=== PATIENT | male | born 1995 | race Caucasian/White ===

== ENCOUNTER 2017-04-17 17:09 | Emergency (ER) | payer OTHER ==
[2017-04-17 19:48] VITALS: BP 142/67
[2017-04-17] MEDS ORDERED: Lidocaine 2% EPI 1:200000 MPF* 20 ML VIAL ONE (21:13)
[2017-04-17] MEDS ORDERED: Clindamycin CAP* 150 MG PO ONE (21:31)
[2017-04-17] MEDS ORDERED: oxyCODONE/Acetamin 5/325 MG* TAB PO ONE (21:32)
--- NOTE | 2017-04-17 21:43 | ED ---
Yifan Diaz Tiffany, scribed for Jorge Benz MD on 04/17/17 at 2110 . GI/ HPI - HPI Summary HPI Summary: The patient is a 21 y/o M c/o rectal abscess since yesterday morning. Symptoms aggravated by nothing. Symptoms alleviated by nothing. Reports right buttock pain, bloody stool, and normal bowel movements. Denies fever. - History of Current Complaint Chief Complaint: EDRectalPain Time Seen by Provider: 04/17/17 20:41 Stated Complaint: ABCESS Hx Obtained From: Patient Onset/Duration: Started Days Ago - Yesterday morning, Still Present Timing: Constant - Allergy/Home Medications Allergies/Adverse Reactions: Allergies Allergy/AdvReac Type Severity Reaction Status Date / Time No Known Allergies Allergy Verified 04/17/17 17:15 PMH/Surg Hx/FS Hx/Imm Hx Previously Healthy: Yes Endocrine/Hematology History: Denies: Hx Diabetes Sensory History: Denies: Hx Deafness Opthamlomology History: Denies: Hx Legally Blind EENT History: Denies: Hx Deafness Infectious Disease History: No Infectious Disease History: Denies: Traveled Outside the [place] in Last 30 Days - Family History Known Family History: Positive: Other - Denies relevant family history - Social History Alcohol Use: Weekly Hx Substance Use: No Substance Use Type: Reports: None Hx Tobacco Use: No Smoking Status (MU): Never Smoked Tobacco Review of Systems Negative: Fever Positive: Other - Rectal abscess, bloody stools, normal bowel movements Positive: Other - Right buttock pain All Other Systems Reviewed And Are Negative: Yes Physical Exam - Summary Physical Exam Summary: VITAL SIGNS: Reviewed. GENERAL: Patient is a well-developed and nourished male who is lying comfortable in the stretcher. Patient is not in any acute respiratory distress. HEAD AND FACE: No signs of trauma. No ecchymosis, hematomas or skull depressions. No sinus tenderness. EYES: PERRLA, EOMI x 2, No injected conjunctiva, no nystagmus. EARS: Hearing grossly intact. Ear canals and tympanic membranes are within normal limits. MOUTH: Oropharynx within normal limits. NECK: Supple, trachea is midline, no adenopathy, no JVD, no carotid bruit, no c- spine tenderness, neck with full ROM. CHEST: Symmetric, no tenderness at palpation LUNGS: Clear to auscultation bilaterally. No wheezing or crackles. CVS: Regular rate and rhythm, S1 and S2 present, no murmurs or gallops appreciated. ABDOMEN: Soft, non-tender. No signs of distention. No rebound no guarding, and no masses palpated. Bowel sounds are normal. RECTAL EXAM: 1.5 inch in diameter area of induration, tenderness at midline between his buttocks which is oozing sanguinopurulent discharge which is foul- smelling EXTREMITIES: FROM in all major joints, no edema, no cyanosis or clubbing. NEURO: Alert and oriented x 3. No acute neurological deficits. Speech is normal and follows commands. SKIN: Dry and warm Triage Information Reviewed: Yes Vital Signs On Initial Exam: Initial Vitals Temp Pulse Resp BP Pulse Ox 97.0 F 73 16 148/88 98 04/17/17 17:13 04/17/17 17:13 04/17/17 17:13 04/17/17 17:13 04/17/17 17:13 Vital Signs Reviewed: Yes Procedures - Incision and Drainage Site: Pus mixed with small amount of blood came out Anesthesia: Lidocaine - 2% Instrument(s): Needle - Blade #11 used to make 1-cm vertical incision Packing: Gauze Diagnostics - Vital Signs Vital Signs Temp Pulse Resp BP Pulse Ox 04/17/17 19:47 97.7 F 77 20 142/67 100 04/17/17 17:13 97.0 F 73 16 148/88 98 - Laboratory Lab Statement: Any lab studies that have been ordered have been reviewed, and results considered in the medical decision making process. GIGU Course/Dx - Course Course Of Treatment: 21 y/o M c/o rectal abscess since yesterday morning. Rectal exam revealed area of induration. Patient agreed to have I&D done. Used lidocaine 2% epi, blade #11 to make 1-cm vertical incision. Pus mixed with small amount of blood came out. Packed. Advised to come back for wound recheck. Agreeable to discharge. - Diagnoses Provider Diagnoses: Pilonidal abscess Discharge - Discharge Plan Condition: Stable Disposition: HOME Prescriptions: Clindamycin Cap(NF) [Clindamycin Cap 300 mg Cap(NF)] 300 mg PO Q6H #30 cap oxyCODONE/Acetamin 5/325 MG* [Percocet 5/325 TAB*] 1 tab PO Q6H PRN #14 tab MDD 4 PRN Reason: Pain Patient Education Materials: Pilonidal Cyst (ED) Referrals: [facility] [place] [Primary Care Provider] - Additional Instructions: Come back here for wound check on Monday04/19/17 morning. RETURN TO EMERGENCY DEPARTMENT FOR ANY NEW OR WORSENING SYMPTOMS The documentation as recorded by the Yifan barrientos Tiffany accurately reflects the service I personally performed and the decisions made by me, Jorge Benz MD.
[2017-04-17] MEDS ORDERED: Clindamycin CAP* 150 MG ONE (21:51)
== END 2017-04-17 21:57 | disposition home or self-care (01) ==
LOC: ED 17:09
DX: L05.01 Pilonidal cyst with abscess (principal)
CPT/HCPCS: 10080; 87070; 87077; 87186; 87205; 99283; A9270-GY

== ENCOUNTER 2017-12-19 15:20 | Emergency (ER) | payer OTHER ==
[2017-12-19 16:40] VITALS: BP 133/71
--- NOTE | 2017-12-19 16:43 | ED ---
Skin Complaint - HPI Summary HPI Summary: Pt. is a 22 y.o male who presents to the ER for a lump to around his right nipple that he noticed yesterday. Pt. states he noticed a small mildly painful lump to the top of his right areola yesterday. Pain is exacerbated by touching area. Pt. states he has had a pilonidal cyst drained before and is concerned it may be an abscess. He denies past medical hx. Denies fever, chills, N/V. Denies family history of breast cancer. Pt. states he believes his grandfather had cancer but is unsure. Symptoms are mild in severity. - History of Current Complaint Chief Complaint: EDRashSkinAbscess Time Seen by Provider: 12/19/17 15:55 Stated Complaint: LUMP ON CHEST Hx Obtained From: Patient Pain Intensity: 0 - Allergy/Home Medications Allergies/Adverse Reactions: Allergies Allergy/AdvReac Type Severity Reaction Status Date / Time No Known Allergies Allergy Verified 12/19/17 15:25 Home Medications: Home Medications NK [No Home Medications Reported] 12/19/17 [History Confirmed 12/19/17] PMH/Surg Hx/FS Hx/Imm Hx Previously Healthy: Yes Endocrine/Hematology History: Denies: Hx Diabetes Sensory History: Denies: Hx Legally Blind, Hx Deafness Opthamlomology History: Denies: Hx Legally Blind Infectious Disease History: No Infectious Disease History: Reports: Traveled Outside the [place] in Last 30 Days - [place] - Family History Known Family History: Positive: Other - Denies relevant family history - Social History Occupation: Employed Full-time Lives: With Family Alcohol Use: Weekly Hx Substance Use: No Substance Use Type: Reports: None Hx Tobacco Use: No Smoking Status (MU): Never Smoked Tobacco Review of Systems Constitutional: Negative Negative: Fever, Chills Negative: Vomiting, Nausea Positive: Other - mass to right areola All Other Systems Reviewed And Are Negative: Yes Physical Exam Triage Information Reviewed: Yes Vital Signs On Initial Exam: Initial Vitals Temp Pulse Resp BP Pulse Ox 98.0 F 58 20 142/81 96 12/19/17 15:21 12/19/17 15:21 12/19/17 15:21 12/19/17 15:21 12/19/17 15:21 Vital Signs Reviewed: Yes Appearance: Positive: Well-Appearing - Pt. sitting up in bed in NAD. Skin: Positive: Warm, Dry, Other - Very small, <.05cm, palpable mass noted to 12 o clock of right areola. Seems to be a gland. Minimally tender. No erythema or drainage. No nipple discharge. Head/Face: Positive: Normal Head/Face Inspection Eyes: Positive: Normal, EOMI Neck: Positive: Supple Neurological: Positive: Normal, CN Intact II-III Psychiatric: Positive: Affect/Mood Appropriate Diagnostics - Vital Signs Vital Signs Temp Pulse Resp BP Pulse Ox 12/19/17 15:21 98.0 F 58 20 142/81 96 - Laboratory Lab Statement: Any lab studies that have been ordered have been reviewed, and results considered in the medical decision making process. Course/Dx - Course Course Of Treatment: Patient presenting with a very small palpable lump to right areola. No signs of infection or abscess on exam. Suspect it is a gland. Advised to follow up with [facility] for further evaluation and possible ultrasound if lump continues. Advised to return to the ER for increased size, redness, pain, fever or if concerned. Patient understands and agrees with plan. - Diagnoses Provider Diagnoses: Swann gland cyst of right breast, Breast mass in male Discharge - Sign-Out/Discharge Documenting (check all that apply): Patient Departure - Discharge Plan Condition: Good Disposition: HOME Patient Education Materials: Breast Mass (ED) Referrals: [facility] [Outside] Additional Instructions: Schedule a follow up appointment with [facility] if lump persist Apply warm compresses to area Return to ER for increased swelling, redness, pain, fever or if concerned - Billing Disposition and Condition Condition: GOOD Disposition: Home
== END 2017-12-19 16:39 | disposition home or self-care (01) ==
LOC: ED 15:20
DX: N60.01 Solitary cyst of right breast (principal); N63.0 Unspecified lump in unspecified breast
CPT/HCPCS: 99282